=== PATIENT | female | born 1945 | race Caucasian/White ===

== ENCOUNTER 2016-12-27 11:27 | Emergency (ER) | payer MEDICARE ==
[2016-12-27 11:31] VITALS: BP 176/79; PULSE 64; RESP 18; TEMP 98.1
[2016-12-27] MEDS ORDERED: DIPH,PERTUS(ACELL)TETVAC-LF 0.5 ML VIAL IM ONE (11:53)
--- NOTE | 2016-12-27 12:04 | ED ---
Wound/Laceration HPI - General Chief Complaint: Wound/Laceration Stated Complaint: left hand lac and rt wrist Time Seen by Provider: 12/27/16 11:46 Source: patient Mode of arrival: ambulatory Limitations: no limitations - History of Present Illness Initial Comments: This is a 71-year-old female who presents emergency department for left hand laceration. She states that she was walking with a glass bowl when she tripped on her sandal and fell. The bowl shattered. She immediately had pain and a laceration in her left hand. She also sustained a small cut to her right forearm and her right second toe. She denies any other injuries. No loss of consciousness. She is unsure of her last tetanus shot. - Related Data Home Medications Medication Instructions Recorded Confirmed Calcium Carbonate/Vitamin D3 1 each PO DAILY 11/03/14 11/03/14 [Calcium 600 + Vit D Tablet] Hydrochlorothiazide [Hydrodiuril] 12.5 mg PO DAILY 11/03/14 11/03/14 Levothyroxine Sodium [Synthroid] 50 mcg PO DAILY 11/03/14 11/03/14 Losartan [Cozaar] 50 mg PO DAILY 11/03/14 11/03/14 Meloxicam [Mobic] 7.5 mg PO DAILY 11/03/14 11/03/14 Multivitamin/Iron/Folic Acid 1 each PO DAILY 11/03/14 11/03/14 [Centrum Complete Multivit Tab] buPROPion HCL [Wellbutrin XL] 300 mg PO DAILY 11/03/14 11/03/14 Previous Rx's Medication Instructions Recorded Cephalexin [Keflex] 500 mg PO Q12HR #14 cap 12/27/16 Allergies Allergy/AdvReac Type Severity Reaction Status Date / Time No Known Allergies Allergy Verified 12/27/16 12:21 Review of Systems ROS Statement: Those systems with pertinent positive or pertinent negative responses have been documented in the HPI. ROS Other: All systems not noted in ROS Statement are negative. Past Medical History Past Medical History: Hypertension, Skin Disorder, Thyroid Disorder Additional Past Medical History / Comment(s): PVC's, mitral valve regurgitation , colon obstruction History of Any Multi-Drug Resistant Organisms: None Reported Past Surgical History: Bowel Resection, Section, Cholecystectomy, Hernia Repair, Orthopedic Surgery Additional Past Surgical History / Comment(s): colon resection 2010 Past Psychological History: Depression Smoking Status: Never smoker Past Alcohol Use History: Daily Past Drug Use History: None Reported General Exam - General Exam Comments Initial Comments: Constitutional: Awake alert Appears comfortable Head: Normocephalic atraumatic Eyes: no conjunctival injection No scleral icterus EOMI Neck: No JVD Supple Heart: Regular rate rhythm normal S1-S2 no murmurs Lungs: Clear to auscultation bilaterally No wheezing No rales Abdomen: Soft nondistended nontender Extremities: Non edematous DP pulses intact Radial pulses intact there is a V- shaped flap laceration to the left hypothenar eminence. The patient states that she has some numbness in the left fingers. She is able to move the hand. She feels like there is a foreign body sensation when I palpate the area. There is copious amount of bleeding. Neuro: A&Ox3 No focal neurologic deficits Psych: Appropriate mood and affect Limitations: no limitations Course Vital Signs 12/27/16 11:29 Temperature 98.1 F Pulse Rate 64 Respiratory 18 Rate Blood Pressure 176/79 O2 Sat by Pulse 100 Oximetry Medical Decision Making - Medical Decision Making Is a 71-year-old female presents emergency department for a hand laceration. It was repaired at bedside under local anesthesia. Patient tolerated it well. She continued to have a foreign body sensation however after extensive searching I could not find any other pieces of glass. There is nothing on the x -ray as well. I decided to close the skin to control the bleeding. I spoke with Dr. Troncoso who stated that she should follow-up with them in their office tomorrow. If she continues to have foreign body sensation they will do an exploration at that time in the office. The patient is improved. She was given tetanus and I will start her on Keflex as well. She can return emergency Department if he has worsening or changing symptoms. All questions were answered. Disposition Clinical Impression: Hand laceration Disposition: HOME SELF-CARE Condition: Stable Instructions: Laceration (ED) Prescriptions: Cephalexin [Keflex] 500 mg PO Q12HR #14 cap Referrals: None,Stated [REFERRING] - 1-2 days Byron Troncoso DO [Doctor of Osteopathic Medicine] - 1-2 days
[2016-12-27] MEDS ORDERED: LIDOCAINE 1%-EPI 1:100,000 20 ML VIAL SQ STA (12:10)
[2016-12-27] MEDS ORDERED: LIDOCAINE 2%-EPI 1:100,000 20 ML VIAL SQ STA (12:13)
--- NOTE | 2016-12-27 12:16 | XR ---
EXAMINATION TYPE: XR hand complete LT DATE OF EXAM: 12/27/2016 COMPARISON: NONE HISTORY: Evaluate for foreign body TECHNIQUE: 2 view left hand FINDINGS: No acute fractures are evident. No radiopaque foreign bodies are evident. Degenerative olson ges are at the first carpometacarpal junction. IMPRESSION: 1. No radiopaque foreign bodies are evident. 2. Degenerative joint changes
--- NOTE | 2016-12-29 04:22 | CDI ---
Documentation Clarification OP Dear Dr. Phil Apple Please do addendum to ED report that provides length, material and procedure of laceration repair performed. Thank you, Ankit Caldwell Supervisor [employer] If you have any questions, please contact Relationship Manager at [phone] [facility]
== END 2016-12-27 13:15 | disposition home or self-care (01) ==
LOC: EC 11:27
DX: S61.412A Laceration without foreign body of left hand, initial encounter (principal); S61.511A Laceration without foreign body of right wrist, initial encounter; E07.9 Disorder of thyroid, unspecified; I10 Essential (primary) hypertension; Z23 Encounter for immunization; F32.9 Major depressive disorder, single episode, unspecified; Z79.1 Long term (current) use of non-steroidal anti-inflammatories (NSAID); Z79.899 Other long term (current) drug therapy; W25.XXXA Contact with sharp glass, initial encounter; Y93.01 Activity, walking, marching and hiking
CPT/HCPCS: 12001; 90471; 90715; 99282

== ENCOUNTER → 2017-11-09 | Outpatient (CLI) | payer MEDICARE ==
[2017-11-09 17:53] LABS: Basophils % (A) 1 %; Eosinophils # (A) 0.2 k/uL (0-0.7); Eosinophils % (A) 3 %; HCT 41.5 % (34.0-46.0); HGB 13.6 gm/dL (11.4-16.0); Lymphocytes # (A) 1.2 k/uL (1.0-4.8); Lymphocytes % (A) 21 %; MCH 31.8 pg (25.0-35.0); MCHC 32.8 g/dL (31.0-37.0); Monocytes # (A) 0.4 k/uL (0-1.0); Monocytes % (A) 7 %; Neutrophils % (A) 68 %; Platelet Count 265 k/uL (150-450); RBC 4.28 m/uL (3.80-5.40); RDW 12.9 % (11.5-15.5); WBC 5.9 k/uL (3.8-10.6)
[2017-11-09 18:05] LABS: ALT 35 U/L (9-52); AST 33 U/L (14-36); Alkaline Phosphatase 55 U/L (38-126); Anion Gap 8 mmol/L; Blood Urea Nitrogen 18 mg/dL (7-17); Calcium 9.6 mg/dL (8.4-10.2); Carbon Dioxide 33 mmol/L (22-30); Chloride 101 mmol/L (98-107); Glucose 91 mg/dL (74-99); Potassium 4.3 mmol/L (3.5-5.1); Sodium 142 mmol/L (137-145); Total Bilirubin 0.4 mg/dL (0.2-1.3); Total Protein 6.5 g/dL (6.3-8.2)
[2017-11-10 00:53] LABS: Iron Saturation 26.69 (12.00-45.00)
[2017-11-10 01:02] LABS: Folate, Serum 19.6 ng/mL
== END | disposition home or self-care (01) ==
LOC: LABWHC1 16:36
PROVIDERS: ATTEND Internal Medicine
DX: E53.8 Deficiency of other specified B group vitamins (principal); E03.9 Hypothyroidism, unspecified; R53.83 Other fatigue
CPT/HCPCS: 36415; 80053; 82607; 82728; 82746; 83540; 83550; 84443; 85025

== ENCOUNTER 2022-12-06 13:48 | Emergency (ER) | payer MEDICARE ==
[2022-12-06 13:57] VITALS: RESP 18
--- NOTE | 2022-12-06 14:43 | ED ---
Skin/Abscess/FB HPI - General Source: patient, RN notes reviewed Mode of arrival: ambulatory Limitations: no limitations - History of Present Illness MD complaint: rash <Keely Bryant - Last Filed: 12/06/22 14:43> <Leonor Recinos - Last Filed: 12/06/22 20:06> - General Chief complaint: Skin/Abscess/Foreign Body Stated complaint: L Chin carmen infection Time Seen by Provider: 12/06/22 14:35 - History of Present Illness Initial comments: This is a 77-year-old female who presents to the emergency department for concerns of an infection to her left lower extremity. Patient scraped her left alcaraz a couple of weeks ago. She started to develop increasing redness to the area a few days ago, prompting her to go to urgent care. She was started on Keflex 3 days ago, which she has been taking as prescribed. However, she is concerned that the redness has persisted. Denies any significant pain with this. Also denies any fevers. (Keely Bryant) 77-year-old female presents emergency department chief complaint of abrasion to her left leg with increasing pain x1 day. She reports that the abrasion has been there for about 3-4 weeks when she was moving a pad for a rolling chair when it cut her leg. She reports increasing redness to the area and was started on antibiotics 3 days ago at urgent care. She reports that she is taking these as prescribed. She reports increasing pain that started last night which prompted her visit to the emergency department. She denies fever, chills, nausea, vomiting. Past medical history includes hypertension, thyroid disorder. She has no known medication ALLERGIES. (Leonor Recinos) - Related Data Home Medications Medication Instructions Recorded Confirmed Calcium Carbonate/Vitamin D3 1 tab PO DAILY 11/03/14 12/27/16 [Calcium 600 + Vit D Tablet] Levothyroxine Sodium [Synthroid] 50 mcg PO DAILY 11/03/14 12/27/16 Losartan [Cozaar] 50 mg PO DAILY 11/03/14 12/27/16 Meloxicam [Mobic] 7.5 mg PO DAILY 11/03/14 12/27/16 Multivitamin/Iron/Folic Acid 1 tab PO DAILY 11/03/14 12/27/16 [Centrum Complete Multivit Tab] buPROPion HCL [Wellbutrin XL] 300 mg PO DAILY 11/03/14 12/27/16 hydroCHLOROthiazide [Hydrodiuril] 12.5 mg PO DAILY 11/03/14 12/27/16 Previous Rx's Medication Instructions Recorded Cephalexin [Keflex] 500 mg PO Q12HR #14 cap 12/27/16 Allergies Allergy/AdvReac Type Severity Reaction Status Date / Time No Known Allergies Allergy Verified 12/06/22 13:58 Review of Systems ROS Other: All systems not noted in ROS Statement are negative. <Keely Bryant - Last Filed: 12/06/22 14:43> ROS Other: All systems not noted in ROS Statement are negative. <Leonor Recinos - Last Filed: 12/06/22 20:06> ROS Statement: Those systems with pertinent positive or pertinent negative responses have been documented in the HPI. Past Medical History Past Medical History: Hypertension, Skin Disorder, Thyroid Disorder Additional Past Medical History / Comment(s): PVC's, mitral valve regurgitation, colon obstruction History of Any Multi-Drug Resistant Organisms: None Reported Past Surgical History: Bowel Resection, Section, Cholecystectomy, Hernia Repair, Orthopedic Surgery Additional Past Surgical History / Comment(s): colon resection 2010 Past Psychological History: Depression Past Alcohol Use History: Daily Past Drug Use History: None Reported <Keely Bryant - Last Filed: 12/06/22 14:43> General Exam <Keely Bryant - Last Filed: 12/06/22 14:43> Limitations: no limitations General appearance: alert, in no apparent distress Head exam: Present: atraumatic, normocephalic, normal inspection Eye exam: Present: normal appearance ENT exam: Present: normal exam, mucous membranes moist Neck exam: Present: normal inspection. Absent: tenderness, meningismus, lymphadenopathy Respiratory exam: Present: normal lung sounds bilaterally. Absent: respiratory distress, wheezes, rales, rhonchi, stridor Cardiovascular Exam: Present: regular rate, normal rhythm, normal heart sounds. Absent: systolic murmur, diastolic murmur, rubs, gallop, clicks GI/Abdominal exam: Present: soft, normal bowel sounds. Absent: distended, tenderness, guarding, rebound, rigid Extremities exam: Present: normal inspection, full ROM, normal capillary refill, other (Abrasion to left leg with mild surrounding erythema). Absent: tenderness, pedal edema, joint swelling, calf tenderness Back exam: Present: normal inspection Neurological exam: Present: alert, oriented X3 Psychiatric exam: Present: normal affect, normal mood Skin exam: Present: warm, dry, normal color, abrasion (Abrasion to left leg with some mild erythema surrounding the area) <Leonor Recinos - Last Filed: 12/06/22 20:06> - General Exam Comments Initial Comments: Visual Physical Exam Vital signs reviewed General: Well-appearing, nontoxic, no acute distress. Head: Normocephalic, atraumatic Eyes: PERRLA, EOMI ENT: Airway patent Chest: Nonlabored breathing Skin: No visual rash, normal skin tone Neuro: Alert and oriented 3 Musculoskeletal: No gross abnormalities (Keely Bryant) Course Vital Signs 12/06/22 12/06/22 13:54 17:34 Temperature 98.0 F 97.4 F L Pulse Rate 77 51 L Respiratory 18 18 Rate Blood Pressure 123/70 167/64 O2 Sat by Pulse 97 99 Oximetry Medical Decision Making <Keely Bryant - Last Filed: 12/06/22 14:43> - Lab Data Result diagrams: 12/06/22 16:38 12/06/22 16:38 <Leonor Recinos - Last Filed: 12/06/22 20:06> - Medical Decision Making I performed the QuickNote portion of this chart. Signed Keely Bryant PA-C. (Keely Bryant) Was pt. sent in by a medical professional or institution ([facility], G[employer]OL[employer] FINISHER, urgent care, hospital, or penitentiary...) When possible be specific @ -No Did you speak to anyone other than the patient for history (EMS, parent, family, police, friend...)? What history was obtained from this source @ -No Did you review nursing and triage notes (agree or disagree)? Why? @ -I reviewed and agree with nursing and triage notes Were old charts reviewed (outside hosp., previous admission, EMS record, old EKG, old radiological studies, urgent care reports/EKG's, penitentiary records)? Report findings @ -No old charts were reviewed Differential Diagnosis (chest pain, altered mental status, abdominal pain women, abdominal pain men, vaginal bleeding, weakness, fever, dyspnea, syncope, headache, dizziness, GI bleed, back pain, seizure, CVA, palpatations, mental health, musculoskeletal)? @ -Cellulitis, osteomyelitis, abrasion, this list is not all-inclusive EKG interpreted by me (3pts min.). @ -None X-rays interpreted by me (1pt min.). @ -X-ray left tib-fib showed no evidence for acute fracture CT interpreted by me (1pt min.). @ -None done U/S interpreted by me (1pt. min.). @ -None done What testing was considered but not performed or refused? (CT, X-rays, U/S, labs)? Why? @ -None What meds were considered but not given or refused? Why? @ -None Did you discuss the management of the patient with other professionals (professionals i.e. , PA, GASOLINE FINISHER, lab, RT, psych nurse, child welfare social worker, powerhouse operator, teacher, loan officer, rifle case repairer)? Give summary @ -No Was smoking cessation discussed for >3mins.? @ -No Was critical care preformed (if so, how long)? @ -No Were there social determinants of health that impacted care today? How? (Homelessness, low income, unemployed, alcoholism, drug addiction, transportation, low edu. Level, literacy, decrease access to med. care, intermediate, rehab)? @ -No Was there de-escalation of care discussed even if they declined (Discuss DNR or withdrawal of care, Hospice)? DNR status @ -No What co-morbidities impacted this encounter? (DM, HTN, Smoking, COPD, CAD, Cancer, CVA, ARF, Chemo, Hep., AIDS, mental health diagnosis, sleep apnea, morbid obesity)? @ -None Was patient admitted / discharged? Hospital course, mention meds given and route, prescriptions, significant lab abnormalities, going to OR and other pertinent info. @ -Discharged. Patient presented to emergency department with chief complaint of abrasion to the left leg with surrounding erythema and mild tenderness. She reports that she has been on Keflex for 3 days for this but she is taking as pr escribed. X-ray obtained which show mild soft tissue swelling. CBC and CMP obtained which were within normal limits. Normal WBC, negative CRP, negative lactic. Patient was advised of these findings and to continue the current regimen. Return precautions discussed. Patient stable at time of discharge. Undiagnosed new problem with uncertain prognosis? @ -No Drug Therapy requiring intensive monitoring for toxicity (Heparin, Nitro, Insul in, Cardizem)? @ -No Were any procedures done? @ -No Diagnosis/symptom? @ -left leg abrasion Acute, or Chronic, or Acute on Chronic? @ -acute Uncomplicated (without systemic symptoms) or Complicated (systemic symptoms)? @ -uncomplicated Side effects of treatment? @ -No Exacerbation, Progression, or Severe Exacerbation? @ -No Poses a threat to life or bodily function? How? (Chest pain, [place], [place], pneumonia, PE, COPD, DKA, ARF, appy, cholecystitis, CVA, Diverticulitis, Homicidal, Suicidal, threat to staff... and all critical care pts) @ -No (Leonor Recinos) - Lab Data Lab Results 12/06/22 12/06/22 12/06/22 Range/Units 16:38 16:38 16:38 WBC 5.5 (3.8-10.6) k/uL RBC 4.39 (3.80-5.40) m/uL Hgb 14.5 (11.4-16.0) gm/dL Hct 43.1 (34.0-46.0) % MCV 98.2 (80.0-100.0) fL MCH 32.9 (25.0-35.0) pg MCHC 33.5 (31.0-37.0) g/dL RDW 12.5 (11.5-15.5) % Plt Count 217 (150-450) k/uL MPV 7.5 Neutrophils % 61 % Lymphocytes % 27 % Monocytes % 9 % Eosinophils % 2 % Basophils % 0 % Neutrophils # 3.4 (1.3-7.7) k/uL Lymphocytes # 1.5 (1.0-4.8) k/uL Monocytes # 0.5 (0-1.0) k/uL Eosinophils # 0.1 (0-0.7) k/uL Basophils # 0.0 (0-0.2) k/uL Sodium 133 L (137-145) mmol/L Potassium 4.4 (3.5-5.1) mmol/L Chloride 99 (98-107) mmol/L Carbon Dioxide 29 (22-30) mmol/L Anion Gap 5 mmol/L BUN 18 H (7-17) mg/dL Creatinine 0.71 (0.52-1.04) mg/dL Est GFR (CKD-EPI)AfAm >90 (>60 ml/min/1.73 sqM) Est GFR (CKD-EPI)NonAf 82 (>60 ml/min/1.73 sqM) Glucose 94 (74-99) mg/dL Plasma Lactic Acid Jeramy 1.1 (0.7-2.0) mmol/L Calcium 9.2 (8.4-10.2) mg/dL Total Bilirubin 0.9 (0.2-1.3) mg/dL AST 45 H (14-36) U/L ALT 29 (4-34) U/L Alkaline Phosphatase 42 (38-126) U/L C-Reactive Protein <0.5 (<1.0) mg/dL Total Protein 7.0 (6.3-8.2) g/dL Albumin 4.0 (3.5-5.0) g/dL Disposition <Keely Bryant - Last Filed: 12/06/22 14:43> Is patient prescribed a controlled substance at d/c from ED?: No Time of Disposition: 17:33 <Leonor Recinos - Last Filed: 12/06/22 20:06> Clinical Impression: Leg abrasion Disposition: HOME SELF-CARE Condition: Stable Instructions (If sedation given, give patient instructions): Cellulitis (ED), Abrasion (ED) Additional Instructions: Continue antibiotics to completion. Please return to the emergency department for new or worsening symptoms. Referrals: None,Stated [Primary Care Provider] - 1-2 days
--- NOTE | 2022-12-06 15:18 | XR ---
EXAMINATION TYPE: XR tibia fibula LT DATE OF EXAM: 12/06/2022 COMPARISON: NONE HISTORY: Pain TECHNIQUE: Two views are submitted. FINDINGS: The osseous structures are intact. The joint spaces are preserved. Calcified vascular phleboliths p olga. There is diffuse soft tissue edema. Mild narrowing of the medial compartment knee joint and pa tellofemoral note destructive changes. Tiny marginal spurs along the tibiotalar joint. IMPRESSION: 1. No acute osseous abnormality. Soft tissue edema. 2. Osteoarthritis.
[2022-12-06 16:56] LABS: Basophils % (A) 0 %; Eosinophils # (A) 0.1 k/uL (0-0.7); Eosinophils % (A) 2 %; HCT 43.1 % (34.0-46.0); HGB 14.5 gm/dL (11.4-16.0); Lymphocytes # (A) 1.5 k/uL (1.0-4.8); Lymphocytes % (A) 27 %; MCH 32.9 pg (25.0-35.0); MCHC 33.5 g/dL (31.0-37.0); MCV 98.2 fL (80.0-100.0); Mean Platelet Volume 7.5; Monocytes # (A) 0.5 k/uL (0-1.0); Monocytes % (A) 9 %; Neutrophils # (A) 3.4 k/uL (1.3-7.7); Neutrophils % (A) 61 %; Platelet Count 217 k/uL (150-450); RBC 4.39 m/uL (3.80-5.40); RDW 12.5 % (11.5-15.5); WBC 5.5 k/uL (3.8-10.6)
[2022-12-06 17:09] LABS: ALT 29 U/L (4-34); African American GFR (CKD) >90 (>60 ml/min/1.73 sqM); Anion Gap 5 mmol/L; Blood Urea Nitrogen 18 mg/dL (7-17); Calcium 9.2 mg/dL (8.4-10.2); Carbon Dioxide 29 mmol/L (22-30); Chloride 99 mmol/L (98-107); Glucose 94 mg/dL (74-99); Non-African American GFR(CKD) 82 (>60 ml/min/1.73 sqM); Sodium 133 mmol/L (137-145); Total Bilirubin 0.9 mg/dL (0.2-1.3)
[2022-12-06 17:14] LABS: AST 45 U/L (14-36); Alkaline Phosphatase 42 U/L (38-126); C Reactive Protein <0.5 mg/dL (<1.0); Potassium 4.4 mmol/L (3.5-5.1)
[2022-12-06 17:35] VITALS: BP 167/64; PULSE 51; TEMP 97.4
== END 2022-12-06 18:03 | disposition home or self-care (01) ==
LOC: EC 13:48
DX: S80.812A Abrasion, left lower leg, initial encounter (principal); I10 Essential (primary) hypertension; E07.9 Disorder of thyroid, unspecified; Z86.59 Personal history of other mental and behavioral disorders; Z79.890 Hormone replacement therapy; Z79.899 Other long term (current) drug therapy
CPT/HCPCS: 36415; 80053; 83605; 85025; 86140; 99283